=== PATIENT | male | born 1990 | race Caucasian/White ===

== ENCOUNTER 2017-12-25 18:28 | Emergency (ER) | payer MEDICAID ==
[~2017-12-25] VITALS: Ht 180.3 cm; Wt 70.0 kg
[~2017-12-25 18:28] MED LIST: ALBU6.7H INH; DIPH25CA83 PO; EPIN0.3P3 IM; HYDR-565 PO; IBUP-1574 PO; RANI150T44 PO
[2017-12-25 18:54] VITALS: BP 104/73
[2017-12-25] MEDS ORDERED: albuterol 2.5 MG/3 ML nebule NEB ONE (19:00)
[2017-12-25] MEDS ORDERED: methylPREDNISolone sod succ 125mg/2ml vial IM ONE (19:00)
== END 2017-12-25 20:06 | disposition left against medical advice (07) ==
LOC: ER 18:29
DX: J45.909 Unspecified asthma, uncomplicated (principal); Z53.21 Procedure and treatment not carried out due to patient leaving prior to being seen by health care provider
CPT/HCPCS: 94640; 94760; J2930

== ENCOUNTER 2018-09-06 17:16 | Emergency (ER) | payer MEDICAID ==
[~2018-09-06] VITALS: Ht 180.3 cm; Wt 82.5 kg
[~2018-09-06 17:16] MED LIST changes: +HYDR-4353 PO; -HYDR-565 PO
[2018-09-06 17:30] VITALS: BP 124/83
[2018-09-06 18:40] LABS: BASOPHILS % (AUTO) 0.5 % (0-1); EOSINOPHILS # (AUTO) 0.2 X10'3 (0-0.9); EOSINOPHILS % (AUTO) 4.9 % (0-6); HEMATOCRIT 42.2 % (42.0-52.0); HEMOGLOBIN 14.2 g/dl (14.0-17.9); LYMPHOCYTES # (AUTO) 1.8 X10'3 (1.1-4.8); LYMPHOCYTES % (AUTO) 36.8 % (21-51); MEAN CORPUSCULAR HEMOGLOBIN 29.2 PG (27.0-31.0); MEAN CORPUSCULAR HGB CONC 33.6 g/dL (33.0-36.5); MEAN CORPUSCULAR VOLUME 86.7 FL (78-98); MEAN PLATELET VOLUME 8.8 FL (7.4-10.4); MONOCYTES # (AUTO) 0.5 X10'3 (0-0.9); MONOCYTES % (AUTO) 9.6 % (2-12); NEUTROPHILS # (AUTO) 2.3 X10'3 (1.8-7.7); NEUTROPHILS % (AUTO) 48.2 % (42-75); PLATELET COUNT 276 X10'3 (140-440); RED BLOOD COUNT 4.86 X10'6 (4.70-6.10); RED CELL DISTRIBUTION WIDTH 12.7 % (11.5-14.5); WHITE BLOOD COUNT 4.8 X10'3 (4.5-11.0)
[2018-09-06] MEDS ORDERED: SULF1TAB49 PO (18:49)
[2018-09-06] MEDS ORDERED: mupirocin 2% ointment 22GM TP STA (18:49)
== END 2018-09-06 19:14 | disposition home or self-care (01) ==
LOC: ER 17:17
DX: L02.216 Cutaneous abscess of umbilicus (principal); L03.115 Cellulitis of right lower limb; L98.8 Other specified disorders of the skin and subcutaneous tissue; J45.909 Unspecified asthma, uncomplicated; F12.90 Cannabis use, unspecified, uncomplicated; F15.90 Other stimulant use, unspecified, uncomplicated
CPT/HCPCS: 36415; 85025; 86140; 99283

== ENCOUNTER 2019-06-08 01:40 | Emergency (ER) | payer MEDICAID ==
[~2019-06-08] VITALS: Ht 180.3 cm; Wt 81.8 kg
[~2019-06-08 01:40] MED LIST changes: -ALBU6.7H INH; +ALBU6.7H9 INH; +RANI-648 PO; -RANI150T44 PO
[2019-06-08] MEDS ORDERED: LORazepam 2 mg/ml vial IV ONE ×2 (02:05→02:50)
--- NOTE | 2019-06-08 02:05 | NUR ---
ATTMEPTED TO QUESTION PT ABOUT MEDICATION , WHAT HE TAKES, HAS TAKEN, BOTH PRESCRIBED AND STREET DRUGS. PT NOT ANSWERING QUESTIONS , MUBBLING NOT MAKING ALOT OF SENSE.
--- NOTE | 2019-06-08 02:20 | NUR ---
PT MUMBLING, NOT MAKING CLEAR SENTENCES, TALING ABOUT A DOG AND THEN ABOUT ALF. HOLDING BREATH WHEN ATTEMPTING IV START BUT RESPONDS TO "TAKE A BREATH" WHEN ASKED. ATTEMPTED X4 IV STARTS WITHOUT SUCESS. NOTIFIED DR ABDI. WILL CONTINUE TO ATTEMPT IV START ONCE PT SETTLES DOWN A BIT
[2019-06-08] MEDS ORDERED: iohexol 300mg/ml 100ml inj. ONE (02:29)
[2019-06-08] MEDS ORDERED: LORazepam 2 mg/ml vial IM ONE (02:30)
[2019-06-08] MEDS ORDERED: LORazepam 1 MG tablet PO ONE (02:35)
[2019-06-08] MEDS ORDERED: OLANZapine 2.5MG tablet PO ONE ×2 (02:38→03:05)
[2019-06-08 02:42] LABS: BASOPHILS # (AUTO) 0.1 X10'3 (0-0.2); BASOPHILS % (AUTO) 1.3 % (0-1); EOSINOPHILS # (AUTO) 0.2 X10'3 (0-0.9); HEMATOCRIT 42.4 % (42.0-52.0); HEMOGLOBIN 14.2 g/dl (14.0-17.9); LYMPHOCYTES # (AUTO) 1.5 X10'3 (1.1-4.8); LYMPHOCYTES % (AUTO) 27.3 % (21-51); MEAN CORPUSCULAR HEMOGLOBIN 29.6 PG (27.0-31.0); MEAN CORPUSCULAR HGB CONC 33.5 g/dL (33.0-36.5); MEAN CORPUSCULAR VOLUME 88.5 FL (78-98); MEAN PLATELET VOLUME 9.3 FL (7.4-10.4); MONOCYTES # (AUTO) 0.6 X10'3 (0-0.9); MONOCYTES % (AUTO) 11.9 % (2-12); NEUTROPHILS % (AUTO) 56.5 % (42-75); PLATELET COUNT 177 X10'3 (140-440); RED BLOOD COUNT 4.79 X10'6 (4.70-6.10); RED CELL DISTRIBUTION WIDTH 13.4 % (11.5-14.5); WHITE BLOOD COUNT 5.4 X10'3 (4.5-11.0)
[2019-06-08] MEDS ORDERED: diphenhydrAMINE 50 mg/ml inj IV ONE (02:50)
[2019-06-08] MEDS ORDERED: OLANZapine 2.5MG tablet PO SCH (03:05)
--- NOTE | 2019-06-08 03:13 | NUR ---
PT TO CT
[2019-06-08 03:22] LABS: ALANINE AMINOTRANSFERASE 49 U/L (12-78); ALKALINE PHOSPHATASE 133 IU/L (46-116); ANION GAP 7 (8-16); ASPARTATE AMINO TRANSFERASE 51 U/L (10-37); BILIRUBIN,TOTAL 0.5 MG/DL (0.1-1.0); CALCIUM 8.8 MG/DL (8.5-10.1); CHLORIDE 101 MMOL/L (99-107); CREATININE 0.88 MG/DL (0.60-1.10); GLUCOSE 90 MG/DL (70-104); POTASSIUM 3.7 MMOL/L (3.5-5.1); SODIUM 138 MMOL/L (135-145); TOTAL CARBON DIOXIDE 29.6 MMOL/L (24-32); TOTAL PROTEIN 8.1 G/DL (6.4-8.2); eGFR > 90 ML/MIN
--- NOTE | 2019-06-08 03:30 | NUR ---
PT BACK FROM CT
[2019-06-08 03:40] LABS: BLOOD UREA NITROGEN 25 MG/DL (7-18); BUN/CREATININE RATIO 28.4 (5.4-32.0)
[2019-06-08 03:41] LABS: ACETAMINOPHEN < 2.0 UG/ML (10-30); ETHANOL < 0.010 GM/DL (0.0-0.010)
--- NOTE | 2019-06-08 03:43 | NUR ---
IV DISCONTINUED R/T IV INFILTRATION BY CT. MD AWARE, WARM COMPRESS TO RIGHT ARM APPLIED. PT TOLERATED ATTENTIVE AT BEDSIDE
--- NOTE | 2019-06-08 03:52 | NUR ---
PT SLEEPING PEACFULLY ON HIS BACK . AT BEDSIDE
--- NOTE | 2019-06-08 03:56 | NUR ---
WARM COMPRESS REPOSITIONED TO THE RIGHT UPPER WARM. PT SLEEPING PEACEFULLY UNLABORED O2 SATS AT 96 % ROOM
--- NOTE | 2019-06-08 04:00 | NUR ---
SPOKE WITH THE PT SPOUSE AT BEDSIDE ABOUT NEEDING A URINE SPECIMAN. PT SPOUSE REPLIED THAT HER TOLD HER HE DOES NOT WANT TO BE HELD DOWN OR CATHED FOR A SAMPLE.EDUCATED PT SPOUSE THAT NOW THAT THE PT IS SEDATED WOULD BE A GOOD TIME AND LESS TRAMATIC TO OBTAIN THE URINE , TO HELP DIAGNOSIS PT AND WHAT IS HAPPENING TO HIM . PT SPOUSE DEFENSFUL , PULLED CURTAIN , AND STATED SHE FREARS HE WILL AWAKE AND BECOME PHYSICALLY VIOLENT. EDUCATED PT SPOUSE THAT WE ARE MORE THAN CAPABLE OF TREATING THE PATIENT SAFELY WITH CARE. NOTIFIED DR ABDI OF THE CIRCUMSTANCES .
--- NOTE | 2019-06-08 04:09 | NUR ---
DR ABDI STATED THAT IF THE URINE SPECIMAN WAS NOT OBTAINED RIGHT NOW THAT WOULD BE OK PERHAPS WHEN THE PT AWAKES HE WILL VOID .
--- NOTE | 2019-06-08 05:01 | NUR ---
PT ASLEEP IN BED/ UNLABORED RESP /SPOUSE AT BEDSIDE
--- NOTE | 2019-06-08 05:15 | NUR ---
PT SPOUSE OUT TO LOBBY TO SPEAK W/MOTHER N LAW .PT STATED THAT SHE MIGHT GO HOME FOR SOME REST. SHE STATED THAT HER WOULD NOT LIKE A STRIGHT CATH AND WOULD PREFER TO VOID WHEN HE AWAKES
--- NOTE | 2019-06-08 05:36 | NUR ---
Raymond: [phone] steve.
--- NOTE | 2019-06-08 05:54 | NUR ---
PT SLEEPING, AUROSABLE TO LIGHT TOUCH BUT FALLS RIGHT BACK TO SLEEP. RESP UNLABORED, SPOUSE NO LONGER AT BEDSIDE .
--- NOTE | 2019-06-08 06:33 | NUR ---
pt taken to overflow with rn and tech.
--- NOTE | 2019-06-08 09:30 | NUR ---
Pt dressed in green scrubs. Has swelling to right upper arm, no other skin problems noted but appears unkempt. Snoring respirations but normal respiratory rate at 14.
--- NOTE | 2019-06-08 10:59 | NUR ---
Pt sleeping, respirations normal.
--- NOTE | 2019-06-08 12:26 | NUR ---
Pt is resting in bed peacefully in the supine position. Mother is at bedside reading a book. Pt wakes up intermittently to say that we may speak to his mother regarding his condition.
--- NOTE | 2019-06-08 13:30 | NUR ---
Pt up at bedside eating lunch. He appears drowsy and placed his head on his lunch tray. Removed lunch tray and encouraged pt to lie down. Pt is now resting in bed peacefully on his right side. No distress noted. Will continue to monitor.
[2019-06-08 13:48] LABS: CLARITY,URINE CLEAR (Clear); COLOR,URINE YELLOW (Yellow); GLUCOSE, URINE NEGATIVE (Neg); KETONES,URINE NEGATIVE (Neg); LEUKOCYTE ESTERASE ,URINE NEGATIVE (Neg); NITRITES, URINE NEGATIVE (Neg); OCCULT BLOOD,URINE NEGATIVE (Neg); PH,URINE 5.5 (4.8-8.0); PROTEIN,URINE NEGATIVE (Neg); UROBILINOGEN,URINE 0.2 E.U/dL (0.2-1.0)
[2019-06-08 13:58] LABS: UA COLLECTION TYPE CLN CATCH MIDSTREAM
[2019-06-08 14:08] LABS: URINE AMPHETAMINE SCREEN POSITIVE (Neg); URINE BARBITUATE SCREEN NEGATIVE (Neg); URINE BENZODIAZEPINES SCREEN NEGATIVE (Neg); URINE CANNABINOID SCREEN POSITIVE (Neg); URINE COCAINE SCREEN NEGATIVE (Neg); URINE METHADONE SCREEN POSITIVE (Neg); URINE OPIATE SCREEN POSITIVE (Neg); URINE PHENCYCLIDINE SCREEN NEGATIVE (Neg)
--- NOTE | 2019-06-08 15:30 | NUR ---
Pt is resting in bed peacefully at this time. No distress noted. Pt continues to be arrousable to name but still appears drowsy. Will continue to monitor. Pt's mother reprots that Pt has been "awake for at least 2 days". Will continue to monitor.
--- NOTE | 2019-06-08 17:00 | NUR ---
Mother and girlfriend are at bedside. Pt is resting in bed peacefully. No distress observed. Will continue to monitor
--- NOTE | 2019-06-08 18:01 | NUR ---
Unable to verify Methadone dose but does receive it from [facility], closed at this time. Phone # [phone]
[2019-06-09] MEDS ORDERED: nicotine 21mg patch - 24 hr TD ONE (04:50)
[2019-06-09] MEDS ORDERED: LORazepam 1 MG tablet PO ONE (04:50)
[2019-06-09 05:48] VITALS: BP 130/78
--- NOTE | 2019-06-09 06:57 | NUR ---
Pt is resting in bed p[eacefully at this time. No distress observed. Pt is laying on his left side. Will continue to monitor.
--- NOTE | 2019-06-09 08:30 | NUR ---
Pt is resting in bed peacefully. No disrtress observed. Pt did not eat his breakfast. Will continue to monitor.
--- NOTE | 2019-06-09 09:51 | NUR ---
Neptali from [facility] is at bedside talking to patient. No distress observed. Will continue to monitor.
[2019-06-09] MEDS ORDERED: METH-603 PO (09:52)
--- NOTE | 2019-06-09 10:24 | NUR ---
Spoke to patient and he states that he is ready to "get out of here". He is speaking coherently. He ate his breakfast and denies needs at this time. He is seen ambulating to the restroom. Will continue to monitor.
--- NOTE | 2019-06-09 10:46 | NUR ---
ABHISHEK FROM [facility] IS RELEASING PT TO HOME. DR BRIONES CONSULTED, BELONGINGS RETURN TO PT.
--- NOTE | 2019-06-09 11:00 | NUR ---
Pt arrived to the unit disoriented and unable to communicate effectively. He was experiencing mumbled speech and tangential thinking. His mother reported he was sleep deprived and possibly on street drugs. Utox confirmed he was positive for meth, marijuana, opioids and methadone. He also hasa PMH of schizophrenia. Currently he is experiencing clear speech with appropriate rate and volume. His thought process is linear and his status has improved greatly since admit. All items are in the patient's posession. Pt disharged from the unit, ambulating self, in no apparent distress. Pt was transferred to the care of his mother. All questions were answered and Pt verbalized understanding of discharge plan. He was accompanied by security to lobby.
== END 2019-06-09 11:15 | disposition home or self-care (01) ==
LOC: ER 01:40
DX: F29 Unspecified psychosis not due to a substance or known physiological condition (principal); F68.8 Other specified disorders of adult personality and behavior; F31.9 Bipolar disorder, unspecified; J45.909 Unspecified asthma, uncomplicated; F15.90 Other stimulant use, unspecified, uncomplicated; F11.90 Opioid use, unspecified, uncomplicated; Z79.899 Other long term (current) drug therapy
CPT/HCPCS: 36415; 70450; 80053; 80305; 80320; 80329; 81003; 84443; 85025; 96374; 96375; 99284; J1200; J2060; Q9967

== ENCOUNTER 2023-07-05 19:37 | Emergency (ER) | payer MEDICAID ==
[~2023-07-05] VITALS: Ht 180.3 cm; Wt 104.2 kg
[~2023-07-05 19:37] MED LIST changes: +ALBU6.7H14 INH; -ALBU6.7H9 INH; +METH-603 PO
[2023-07-05] MEDS ORDERED: DOXY-1 PO (21:09)
[2023-07-05] MEDS ORDERED: DOXYCYCLINE 100MG CAPSULE PO STA (21:09)
[2023-07-05 21:33] VITALS: BP 150/94; PULSE 84; RESP 17; TEMP 98.9; O2SAT 100
== END 2023-07-05 21:37 | disposition home or self-care (01) ==
LOC: ER 19:38
DX: L03.115 Cellulitis of right lower limb (principal); J45.909 Unspecified asthma, uncomplicated; F31.9 Bipolar disorder, unspecified; F15.90 Other stimulant use, unspecified, uncomplicated; F11.90 Opioid use, unspecified, uncomplicated; Z88.8 Allergy status to other drugs, medicaments and biological substances; Z79.899 Other long term (current) drug therapy
CPT/HCPCS: 87070; 99283; A6222; A6223; 87077; 87186; A6258; A6449